=== PATIENT | female | born 2005 | race Caucasian/White ===

== ENCOUNTER 2024-07-27 22:51 | Emergency (ER) | payer BC ==
[~2024-07-27] VITALS: Ht 162.6 cm; Wt 59.1 kg
[2024-07-27 23:00] VITALS: TEMP 99
[2024-07-28] MEDS ORDERED: diphenhydrAMINE 50 MG/ML 1 ML VIAL IV ONE (01:00)
[2024-07-28] MEDS ORDERED: Ketorolac 30 MG/ML VIAL IV ONE (01:00)
[2024-07-28 02:33] VITALS: BP 111/64; PULSE 63
== END 2024-07-28 02:51 | disposition home or self-care (01) ==
LOC: COL.ER 22:51
DX: G43.909 Migraine, unspecified, not intractable, without status migrainosus (principal)
CPT/HCPCS: J0780; J1200; J1885